=== PATIENT | female | born 2000 | race American Indian/Alaskan Native ===

== ENCOUNTER 2020-08-15 11:24 | Day surgery (SDC) | payer MEDICAID ==
--- NOTE | 2020-08-15 04:59 | History and Physical Report ---
History of Present Illness Date of examination: 08/15/20 Chief complaint: Demise History of present illness: Pt is a 20 year old -[place] female primigravida who presents for surgical management of demise at 13 wks by ultrasound on 08/07/20. Past History Past Medical History: other (Anxiety ) Past Surgical History: no surgical history SCENE SHIFTER History: abnormal PAP smear Family/Genetic History: diabetes, heart disease, hypertension Social history: no significant social history - Obstetrical History : 1 Medications and Allergies Allergies Allergy/AdvReac Type Severity Reaction Status Date / Time No Known Allergies Allergy Verified 08/15/20 04:55 Home Medications Medication Instructions Recorded Confirmed Last Taken Type No Known Home Medications [No 08/13/20 08/13/20 Unknown History Reported Home Medications] Active Meds: Active Medications Lactated Ringer's (Lactated Ringers) 1,000 mls @ 75 mls/hr IV DIRECT MARICRUZ Review of Systems All systems: negative - Physical Exam Breasts: Positive: deferred Abdomen: Positive: soft Results All other labs normal. Ultrasound: report reviewed (08/07/20: Demise. Cephalic. AUA 13w3d. ) Assessment and Plan A: Demise at 13 wks P: Proceed with Suction Dilation and Curettage and other indicated procedures
[~2020-08-15 11:24] MED LIST: DOXYCYCLINE HYCLATE 100 MG in SODIUM CHLORIDE 0.9% 250ML 250 ML IV ONE; LACTATED RINGERS 1,000 ML IV SCH; METHYLERGONOVINE MALEATE 0.2 MG/ML VIAL IM ONE; miSOPROStol 200 MCG TAB PR ONE
[2020-08-15] MEDS ORDERED: HYDROmorphone 1 MG/1 ML INJ IV PRN (11:50)
[2020-08-15] MEDS ORDERED: ONDANSETRON 4 MG/2 ML INJ IV PRN (11:50)
--- NOTE | 2020-08-15 11:50 | Anesthesia Day of Surgery ---
Anesthesia Day of Surgery - Day of Surgery Patient Examined: Yes Patient H&P Reviewed: Yes Patient is NPO: Yes
--- NOTE | 2020-08-15 11:50 | Anesthesia Consultation ---
Anesthesia Consult and Med Hx Date of service: 08/15/20 - Airway Anesthetic Teeth Evaluation: Good ROM Head & Neck: Adequate Mental/Hyoid Distance: Adequate Mallampati Class: Class I Intubation Access Assessment: Good - Pre-Operative Health Status ASA Pre-Surgery Classification: ASA1 Proposed Anesthetic Plan: General - Pulmonary Hx Smoking: Yes (Former) - Central Nervous System Hx Psychiatric Problems: No - Gastrointestinal Hx Gastroesophageal Reflux Disease: No - Hematic Hx Sickle Cell Disease: No - Other Systems Hx Cancer: No
[2020-08-15] MEDS ORDERED: MIDAZOLAM 2 MG/2 ML INJ IV NR (12:00)
[2020-08-15] MEDS ORDERED: MIDAZOLAM 2 MG/2 ML INJ ONE (12:04)
[2020-08-15] MEDS ORDERED: fentaNYL 100 MCG/2 ML INJ ONE (12:06)
[2020-08-15] MEDS ORDERED: SILVER NITRATE APPLICATOR 1 EA TP ONE (12:11)
[2020-08-15 12:29] LABS: Basophils % (Auto) 0.4 % (0.0-1.8); Eosinophils % (Auto) 0.6 % (0.0-4.3); Hematocrit 39.3 % (30.3-42.9); Lymphocytes # (Auto) 1.3 K/mm3 (1.2-5.4); Lymphocytes % (Auto) 33.1 % (13.4-35.0); Mean Corpuscular HGB Conc 33 % (30-34); Mean Corpuscular Volume 102 fl (79-97); Monocytes # (Auto) 0.5 K/mm3 (0.0-0.8); Monocytes % (Auto) 12.9 % (0.0-7.3); Platelet Count 194 K/mm3 (140-440); Red Blood Count 3.84 M/mm3 (3.65-5.03); Red Cell Distribution Width 13.3 % (13.2-15.2)
[2020-08-15] MEDS ORDERED: propofoL 200 MG/20 ML VIAL IV ONE (12:32)
[2020-08-15] MEDS ORDERED: LIDOCAINE MPF (2%) 20 MG/1 ML VIAL 5 ML ONE (12:32)
[2020-08-15] MEDS ORDERED: SODIUM CHLORIDE 0.9% IRR 1,500 ML BOTTLE IR ONE (13:13)
[2020-08-15] MEDS ORDERED: miSOPROStol 200 MCG TAB PR ONE (13:27)
[2020-08-15] MEDS ORDERED: METHYLERGONOVINE MALEATE 0.2 MG/ML VIAL IM ONE (13:30)
[2020-08-15] MEDS ORDERED: ONDANSETRON 4 MG/2 ML INJ ONE (13:50)
[2020-08-15] MEDS ORDERED: PHENYLEPHRINE/NS 1,000 MCG/10 ML SYRINGE (OR USE) IV ONE (13:50)
[2020-08-15] MEDS ORDERED: dexAMETHasone 20 MG/5 ML VIAL ONE (13:50)
--- NOTE | 2020-08-15 13:52 | Operative Report ---
Operative Report Operative Report: Date of procedure: August 15, 2020 Preoperative diagnosis: 1) Demise at 13 wks Postoperative diagnosis: Same Procedure: Suction Dilation and Curettage Surgeon: Margaret Oconnell MD Anesthesia: General with LMA Findings: 1) Anteverted uterus with closed cervix EBL: 250 mL Urine output: 75 mL, clear, prior to procedure Specimens: products of conception to pathology Drains: None Complications: None. Counts correct x 2 Medications: Methergine 0.2 mg IM and Misoprostol 800 mcg per rectum Disposition: Stable to PACU Indication for procedure: Pt is a 20 year old primigravida who presents for surgical management of demise at 13 wks Procedure in detail: After the risks, benefits, alternatives and complications were explained to the patient she gave informed consent for the procedure. She was subsequently taken to the operating room with her IV noted to be running well. She was placed in the dorsal supine position and SCDs were noted to be in place and functioning. General anesthesia was then induced without difficulty. She was then placed in the dorsal lithotomy position and prepped and draped in a normal sterile fashion. A timeout was performed. Exam under anesthesia yielded a soft, anteverted uterus. The bladder was emptied yielding 75 mL of clear urine with a rubber catheter. The cervix was serially dilated to a #39 Barney dilator. A number 12 rigid suction curette, as well as polyp forceps were used to evacuate the uterine cavity. The procedure was completed under ultrasound guidance. A dose of Methergine 0.2 mg IM was given. The single tooth tenaculum was removed from the cervix. A laceration of the serosa was repaired with a figure of eight of 3-0 Vicryl. Hemostasis was noted. All instruments were then removed from the vagina atraumatically. Misoprostol 800 mcg was placed per rectum. At the time the procedure was ended. The patient was placed into the dorsal supine position and extubated without difficulty. She was then taken to the PACU in stable condition. All counts were correct x 2.
[2020-08-15] MEDS ORDERED: MEPERIDINE 25 MG/1 ML INJ ONE (13:58)
--- NOTE | 2020-08-15 14:00 | Short Stay Summary ---
Short Stay Documentation Date of service: 08/15/20 - History H&P: dictated Social history: no significant social history - Allergies and Medications Current Medications: Allergies No Known Allergies Allergy (Verified 08/15/20 04:55) Home Medications Medication Instructions Recorded Confirmed Last Taken Type No Known Home Medications [No 08/13/20 08/13/20 Unknown History Reported Home Medications] Active Medications Hydromorphone HCl (Dilaudid) 0.25 mg IV Q10MIN PRN PRN Reason: Pain, Moderate (4-6) Stop: 08/15/20 23:51 Hydromorphone HCl (Dilaudid) 0.5 mg IV Q10MIN PRN PRN Reason: Pain , Severe (7-10) Stop: 08/15/20 23:00 Lactated Ringer's (Lactated Ringers) 1,000 mls @ 75 mls/hr IV DIRECT MARICRUZ Midazolam HCl (Versed) 2 mg IV PREOP NR Stop: 08/15/20 23:59 Ondansetron HCl (Zofran) 4 mg IV ONCE PRN PRN Reason: Nausea And Vomiting - Physical exam Breasts: deferred - Brief post op/procedure progress note Date of procedure: 08/15/20 Pre-op diagnosis: Demise at 13 wks Post-op diagnosis: same Procedure: Suction Dilation and Curettage Anesthesia: GETA Findings: 1) Anteverted uterus with closed cervix Surgeon: ABRAM WHALEN Estimated blood loss: other (250 mL) Pathology: list (products of conception) Specimen disposition: to lab Condition: stable - Hospital course Hospital course: Pt underwent suction dilation and curettage which she tolerated well. She was observed in the PACU until she met discharge criteria. - Disposition Condition at discharge: Stable Disposition: DC- TO HOME OR SELFCARE - Discharge Diagnoses (1) demise Status: Acute Short Stay Discharge Plan Activity: other (No sex, nothing in vagina, no tub baths for 4 wks ) Weight Bearing Status: Full Weight Bearing Diet: regular Follow up with: PRIMARY CARE, [Primary Care Provider] - 7 Days Prescriptions: Doxycycline Hyclate 100 mg PO BID #14 tablet. Ibuprofen [Motrin] 800 mg PO Q8HR PRN #30 tablet PRN Reason: Pain, Moderate (4-6) oxyCODONE /ACETAMINOPHEN [Percocet 5/325] 1 tab PO Q6HR PRN #10 tablet PRN Reason: Pain
[2020-08-15] MEDS ORDERED: HYDROcodone/ACETAMINOPHEN 5-325 MG TAB PO PRN (14:40)
[2020-08-15] MEDS: HYDROmorphone 1 MG/1 ML INJ IV PRN ×2 (14:45→14:55)
--- NOTE | 2020-08-15 14:46 | Post Anesthesia Evaluation ---
- Post Anesthesia Evaluation Patient Participated: Yes Airway Patent: Yes Stable Respiratory Function: Yes Nausea/Vomiting: No Temp > 96.8F: Yes Pain Manageable: Yes Adequeate Hydration: Yes Anesthesia Complications: No Block Receding Appropriately: Not Applicable Patient on Ventilator: No
[2020-08-15 15:09] VITALS: BP 131/77
--- NOTE | 2020-08-15 15:47 | Ultrasound Report ---
US OB limited INDICATION / CLINICAL INFORMATION: demise at 13 wks. COMPARISON: None TECHNIQUE: Intraoperative sonographic images were obtained during the D&C procedure. FINDINGS: Intraoperative sonographic images for D&C for demise. IUP was identified without heart ra te detected on provided images. Post D&C images demonstrate no IUP and 6 mm endometrial stripe. See procedure note by performing physician for full details. Signer Name: Rashaad Dhillon MD Signed: 08/15/2020 3:43 PM Workstation Name: [id number]
== END 2020-08-15 11:25 | disposition home or self-care (01) ==
LOC: OR 11:24
PROVIDERS: ATTEND Obstetrics & Gynecology
DX: O02.1 Missed abortion (principal); F41.9 Anxiety disorder, unspecified; Z83.3 Family history of diabetes mellitus; Z82.49 Family history of ischemic heart disease and other diseases of the circulatory system; Z79.899 Other long term (current) drug therapy; Z87.891 Personal history of nicotine dependence
CPT/HCPCS: 36415; 59820; 76815; 85025; 86850; 86900; 86901; 88305; J1100; J1170; J2175; J2210; J2250; J2370; J2405; J2704; J3010; J7050; J7120

== ENCOUNTER 2021-05-22 16:19 | Outpatient (CLI) | payer MEDICAID ==
[2021-05-22] MEDS ORDERED: LACTATED RINGERS 1,000 ML ONE (17:21)
[2021-05-22 17:50] LABS: Hematocrit 35.9 % (30.3-42.9); Hemoglobin 12.3 gm/dl (10.1-14.3); Mean Corpuscular HGB Conc 34 % (30-34); Mean Corpuscular Volume 100 fl (79-97); Platelet Count 187 K/mm3 (140-440); Red Blood Count 3.59 M/mm3 (3.65-5.03); Red Cell Distribution Width 12.6 % (13.2-15.2)
[2021-05-22 17:57] LABS: Bacteria,Urine 1+ /HPF (Negative); Bilirubin,Urine NEG (Negative); Blood,Urine SM (Negative); Color,Urine Straw (Yellow); Protein,Urine <15 mg/dL mg/dL (Negative); Urobilinogen,Urine < 2.0 mg/dL (<2.0)
[2021-05-22 18:06] LABS: Alanine Aminotransferase 11 units/L (7-56); Uric Acid 5.2 mg/dL (3.5-7.6)
[2021-05-22 19:03] VITALS: BP 141/94
== END 2021-05-22 19:22 | disposition home or self-care (01) ==
LOC: TRG 16:19 → APU 16:20 → TRG 19:22
PROVIDERS: ATTEND Obstetrics & Gynecology
DX: O26.893 Other specified pregnancy related conditions, third trimester (principal); R51.9 Headache, unspecified; M79.89 Other specified soft tissue disorders; H53.8 Other visual disturbances; O13.3 Gestational [pregnancy-induced] hypertension without significant proteinuria, third trimester; Z3A.35 35 weeks gestation of pregnancy; Z87.891 Personal history of nicotine dependence
CPT/HCPCS: 36415; 59025; 81001; 82565; 83615; 84450; 84460; 84550; 85027; 96360; J7120